=== PATIENT | female | born 1960 ===

== ENCOUNTER 2017-03-28 05:14 | Inpatient (IN) | payer OTHER ==
[~2017-03-28] VITALS: Ht 160 cm; Wt 83.0 kg
[2017-03-28] VITALS (16 sets, daily range): BP systolic 102–145; BP diastolic 61–89
[2017-03-28] MEDS ORDERED: METFORMIN HCL500 M1 ORAL (06:16)
[2017-03-28] MEDS ORDERED: OMEGA XL PO (06:16)
[2017-03-28] MEDS ORDERED: CARISOPRODOL350 MG ORAL (06:16)
[2017-03-28] MEDS ORDERED: HYDROCODON-ACE1 EA13 ORAL (06:16)
[2017-03-28] MEDS ORDERED: CRESTOR40 MG ORAL (06:16)
[2017-03-28] MEDS ORDERED: Heparin 5000 units/ml inj ONE (06:40)
[2017-03-28] MEDS ORDERED: Bupivacaine w/Epi 0.5% 30ml Vial INJ ONE (06:40)
[2017-03-28] MEDS ORDERED: Vancomycin 1gm inj IVPB ONE (06:40)
[2017-03-28] MEDS ORDERED: Ropivacaine 5mg/ml Vial 20ml INJ ONE (06:40)
[2017-03-28] MEDS ORDERED: Bupivacaine 0.5% Inj 30 ml vial INJ ONE (06:40)
[2017-03-28] MEDS ORDERED: Surgicel 4in x 8in TOPIC ONE (06:41)
[2017-03-28] MEDS ORDERED: LR 1000ml 1,000 ML IVLG SCH (06:51)
--- NOTE | 2017-03-28 06:55 | Anethesia Preoperative Eval ---
Anesthesia Pre-op PMH/ROS General Date of Evaluation: Mar 28, 2017 Time of Evaluation: 07:06 Anesthesiologist: Dawood ASA Score: ASA 3 Mallampati Score Class I : Soft palate, uvula, fauces, pillars visible Class II: Soft palate, uvula, fauces visible Class III: Soft palate, base of uvula visible Class IV: Only hard plate visible Mallampati Classification: Class II Surgeon: Christina Diagnosis: Back Pain Surgical Procedure: ALIF L5-S1, PSF Screws, Instruments Anesthesia History: PONV Family History: no anesthesia problems Allergies: Coded Allergies: No Known Allergies (Unverified , 03/27/17) Medications: see eMAR Past Medical History Cardiovascular: Reports: HTN, other - HL Endocrine: Reports: DM - FBS 113 Other: obesity - BMI 32 PSxH Narrative: Cholecystectomy, TL Anesthesia Pre-op Phys. Exam Physician Exam Last Vital Signs Date Time Temp Pulse Resp B/P Pulse Ox O2 Delivery O2 Flow Rate FiO2 03/28/17 05:58 97.3 66 18 130/89 98 Room Air Constitutional: NAD Neurologic: CN 2-12 intact Cardiovascular: RRR Respiratory: CTA Gastrointestinal: S/NT/ND Airway Exam Mallampati Score: Class II MO: full ROM: full Teeth: missing, intact Anesthesia Pre-op A/P Risk Assessment & Plan Assessment: ASA 3 Plan: GA, BIS, Glidescope Status Change Before Surgery: No Pre-Antibiotics Dru Grams Ancef IV Given Within 1 Hr of Incision: Yes Time Given: 07:21 Andrew Seay MD Mar 28, 2017 06:55
--- NOTE | 2017-03-28 06:56 | Immediate Post-Op Evaluation ---
Immediate Post-Op Evalulation Immediate Post-Op Evalulation Procedure: ALIF L5-S1, PSF Screws, Instruments Date of Evaluation: Mar 28, 2017 Time of Evaluation: 10:59 IV Fluids: 1000 LR Blood Products: 0 Estimated Blood Loss: 50 Urinary Output: 550 Blood Pressure Systolic: 134 Blood Pressure Diastolic: 68 Pulse Rate: 73 Respiratory Rate: 16 O2 Sat by Pulse Oximetry: 100 Temperature (Fahrenheit): 97.8 Pain Score (1-10): 3 Nausea: No Vomiting: No Complications 0 Patient Status: awake, reacts, patent, extubated, none Hydration Status: adequate Dru Grams Ancef IV Given Within 1 Hr of Incision: Yes Time Given: 07:21 Andrew Seay MD Mar 28, 2017 06:56
[2017-03-28] MEDS ORDERED: Hydromorphone 0.5mg/0.5ml inj IVP PRN (07:00)
[2017-03-28] MEDS ORDERED: Oxycodone/Acetaminophen 5-325 ORAL PRN (07:00)
[2017-03-28] MEDS ORDERED: Dexamethasone 20mg/5ml IVP ONE (07:00)
[2017-03-28] MEDS ORDERED: Lidocaine 1% MPF 10mg/ml 5ml ONE (07:00)
[2017-03-28] MEDS ORDERED: Midazolam 2mg/2ml Inj IVP PRN (07:00)
[2017-03-28] MEDS ORDERED: Ketorolac 30mg Inj IV PRN (07:00)
[2017-03-28] MEDS ORDERED: Lidocaine 1% Plain 30 ml INJ ONE ×2 (07:00→10:20)
[2017-03-28] MEDS ORDERED: NS Irrig 1000ml ONE (07:00)
[2017-03-28] MEDS ORDERED: Metoclopramide 10mg/2ml Inj IVP PRN (07:00)
[2017-03-28] MEDS ORDERED: Sterile Water Irrig 1000ml IRRIG ONE (07:00)
[2017-03-28] MEDS ORDERED: ceFAZolin sod 1 GM in NS 55 ML IVPB ONE (07:00)
[2017-03-28] MEDS ORDERED: Neostigmine 1mg/ml 10ml Inj ONE (07:00)
[2017-03-28] MEDS ORDERED: Glycopyrrolate 0.2mg/ml 1ml Vial ONE (07:00)
[2017-03-28] MEDS ORDERED: fentaNYL 100 mcg/2 mL IV PRN (07:00)
[2017-03-28] MEDS ORDERED: Zemuron 50mg/5ml Inj IV ONE (07:00)
[2017-03-28] MEDS ORDERED: DiphenhydrAMINE 50mg/ml Inj IVP PRN (07:00)
[2017-03-28] MEDS ORDERED: Atropine Inj 1mg/10ml Syr IV PRN (07:00)
[2017-03-28] MEDS ORDERED: Norco 7.5mg/325mg tab ORAL PRN (07:00)
[2017-03-28] MEDS ORDERED: Propofol 10mg/ml 100ml btl IV ONE (07:00)
[2017-03-28] MEDS ORDERED: Midazolam 2mg/2ml Inj ONE ×2 (07:00)
[2017-03-28] MEDS ORDERED: Meperidine 25mg/0.5ml Inj (FOR RIGORS ONLY) IV PRN (07:00)
[2017-03-28] MEDS ORDERED: Ketorolac 60mg Inj IV PRN (07:00)
[2017-03-28] MEDS ORDERED: LORazepam Inj 2mg/ml 1ml IV PRN (07:00)
[2017-03-28] MEDS ORDERED: fentaNYL 100 mcg/2 mL IV ONE (07:00)
[2017-03-28] MEDS ORDERED: fentaNYL 250mcg/5ml ONE (07:00)
[2017-03-28] MEDS ORDERED: Norco 5mg/325mg tab ORAL PRN (07:00)
--- NOTE | 2017-03-28 07:01 | Pre-Procedure Note/Attestation ---
Pre-Procedure Note/Attestation Complete Prior to Procedure Planned Procedure: not applicable Procedure Narrative: Anterior interbody reconstruction fusion internal fixation L5-S1 posterior fusion pedicle screw instrumentation L5-S1 Indications for Procedure Pre-Operative Diagnosis: Postr trauma back pain Attestation I attest that I discussed the nature of the procedure; its benefits; risks and complications; and alternatives (and the risks and benefits of such alternatives ), prior to the procedure, with the patient (or the patient's legal pharmacy services representative). I attest that, if there was a reasonable possibility of needing a blood transfusion, the patient (or the patient's legal pharmacy services representative) was given the [facility] standardized written summary, pursuant to the [place] Blood Safety Act ([place] Health and Safety Code # 1645, as amended). I attest that I re-evaluated the patient just prior to the surgery and that there has been no change in the patient's H&P, except as documented below: MIS ARANDA Mar 28, 2017 07:01
[2017-03-28] MEDS: Thrombin 5000 units TOPIC ONE ×2 (07:15→07:56)
[2017-03-28] MEDS: Bacitracin 50000 Units Vial ONE ×2 (07:15→07:56)
[2017-03-28] MEDS ORDERED: Acetaminophen (Non formulary) 1,000 MG/100 ML ML IV ONE (07:30)
--- NOTE | 2017-03-28 10:56 | Brief Operative Note ---
Immediate Post Operative Note Operative Note Pre-op Diagnosis: Postr trauma back pain Procedure: Anterior L5-S1 interbody reconstruction, correction deformity, internal fixation , BMP assist vascular Posterior Pedicla screw L5, S1 fusion SSEP Xray Post-op Diagnosis: same as pre-op Findings: consistent w/pre-op dx studies Surgeon: Christina Lizama Aircraft Refueller: Nicky BUTLER Anesthesiologist: Dawood Anesthesia: general Specimen: none Complications: none Condition: stable Estimated Blood Loss: minimal Implant(s) used?: Yes MIS ARANDA Mar 28, 2017 10:56
[2017-03-28] MEDS ORDERED: HYDROmorphone 1mg/ml Carpuject SUBQ PRN (11:00)
[2017-03-28] MEDS ORDERED: Norco 10mg/325mg tab ORAL PRN (12:15)
[2017-03-28] MEDS ORDERED: PCA HYDROmorphone 1mg/ml 30 ML IV PRN (12:15)
--- NOTE | 2017-03-28 12:30 | Operative Note - Dictated ---
DATE OF OPERATION: 03/28/2017 ADMITTING/PREOPERATIVE DIAGNOSIS: Posttraumatic discogenic back pain. POSTOPERATIVE DIAGNOSIS: Posttraumatic discogenic back pain. OPERATIVE PROCEDURES: 1. Anterior interbody reconstruction fusion with correction deformity and internal fixation L5-S1 with BMP mediated fusion. 2. Posterior pedicle screw instrumentation, L5, S1 with bilateral facet fusions L5-S1. 3. SSEP monitoring. 4. Intraoperative fluoroscopy interpreted by surgeon. 5. Local anesthetic applied by surgeon. SURGEON: Thomas Vasquez, Ph.D., M.D., vascular surgeon anterior approach. Please see separate dictation, Dr. Vasquez respiratory care assistant Dr. Echavarria. Posterior Dr. Vasquez respiratory care assistant CARRIE Lemon. ESTIMATED BLOOD LOSS: Minimal. ANESTHESIOLOGIST: Andrew Seay M.D. ANESTHESIA: General anesthetic with intubation. COMPLICATIONS: None. POSTOPERATIVE CONDITION: Good/stable. SPECIMEN: None. PROCEDURE IN DETAIL: The patient was brought to the operating room and in the supine position, general anesthesia with intubation was induced. Intravenous antibiotics, intravenous Decadron were administered 30 minutes prior to incision time. Anterior abdomen was sterilely, prepped, draped free in the usual sterile fashion. Anterior exposure of the L5-S1 interval was undertaken with Dr. Echavarria and Dr. Vasquez assist. Please see separate dictation. L5-S1 was identified in AP and lateral planes under fluoroscopic guidance under sterile conditions. Midline determined. Annulotomy performed followed with diskectomy to but not through the posterior longitudinal ligament. Denuding of the endplates, inferior L5, superior S1 to subchondral bone. Interpositional grafting with appropriate lordotic cage with fluoroscopic guidance utilized for determination of the correct size and position. The graft containing bone morphogenic protein. Internal fixation. Positioned excellent. The patient is stable. SSEP monitoring. Remaining normal at all times. Graft was incorporated in fibrin glue. The patient was carefully turned to the prone position after the anterior abdomen was sterilely closed and bandaged. Change to different operating table. All new instruments were utilized. The patient was back was sterilely prepped and draped free in the usual sterile fashion. Fluoroscopic guidance under sterile conditions, utilized to determine levels for incision placement with markers. Marker was removed. Longitudinal midline incision over the appropriate intervals were sharply placed at the dermis and epidermis. Electrocautery dissection was carried through the subcutaneous tissue to the level of lumbodorsal fascia was incised right and left of midline over the respective intervals. Pedicle screw instrumentation was undertaken with fluoroscopic guidance of the L5 with 5.5 mm diameter screws and S1 bilaterally was 6.5 mm diameter screws. Posterior cortex was breach with Midas Yogi bur dissection followed with pedicle screw finding, tapping, physical determination with ball-tipped probe of cortical wall integrity, screw insertion and screw stimulation to 5 milliamps. Normal at L5 and S1. The L5-S1 facets were obliterated and fused bilaterally. Interconnecting alexia clamped into position bilaterally. Wound irrigated with antibiotic-containing saline. FloSeal applied followed with 2 grams of vancomycin powder. Sequential reapproximation with Vicryl suture material of the lumbodorsal fascia, subcutaneous tissue. Dermis and epidermis reapproximated with staple sutures. Local anesthetic 1% lidocaine without epinephrine applied bilateral lateral aspects of the incision. Bandage applied, maintained in place with tape. The patient carefully turned from a prone to supine position on the transport bed where she was awakened, extubated in the operating room, and transported to postoperative recovery in good stable condition. Thomas Vasquez M.D. DR: HALIE JOB#: [id number] CC:
[2017-03-28] MEDS ORDERED: LORazepam 0.5mg tab ORAL PRN (13:30)
[2017-03-28] MEDS ORDERED: Naloxone 0.4mg/ml Inj IVP PRN (14:30)
[2017-03-28] MEDS ORDERED: Rate Change PCA 1 Each MISC PRN (15:00)
[2017-03-28] MEDS ORDERED: D5 1/2NS 1,000 ML IV SCH (15:00)
[2017-03-28] MEDS: ceFAZolin sod 1 GM in D5W 55 ML IV SCH ×2 (15:04→23:39)
[2017-03-28] MEDS: PCA HYDROmorphone 1mg/ml 30 ML IV PRN (15:57)
--- NOTE | 2017-03-28 16:36 | Diagnostic Imaging Report ---
Indication: PAIN intraoperative Technique: Intraoperative images Comparison: None Findings: Intraoperative images demonstrate localizing needle what is presumably L5-S1 subsequent images demonstrate placement of a disc spacer at L5-S1, subsequent placement of posterior fusion hardware. Impression: Intraoperative imaging, as described
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
--- NOTE | 2017-03-28 18:00 | Operative Note - Dictated ---
DATE OF OPERATION: 03/28/2017 VASCULAR SURGEON: Jose Echavarria M.D. SPINE SURGEON: Thomas Vasquez M.D. PREOPERATIVE DIAGNOSIS: Degenerative disc disease. POSTOPERATIVE DIAGNOSIS: Degenerative disc disease. PROCEDURE: Anterior retroperitoneal exposure of L5-S1 vertebral interspace. INDICATIONS: The patient is a very pleasant woman, who was seen in my office prior to surgery. She has been scheduled for anterior fusion L5-S1. She has had two prior BONUS CLERK surgeries as well as appendectomy. These appeared to be done through a vertical midline incision and she has a large vertical midline incision extending from her umbilicus distally. She has no masses palpable. On examination, she has normal femoral pedal pulses. She is made aware of the risks of vascular surgery both by discussing with her directly in Faroese as well as the use of a general partner at the time of our initial evaluation. She has no evidence of vascular injury. Possible need for blood transfusion and deep venous thrombosis. DESCRIPTION OF FINDINGS: A previous low vertical midline incision was used. A left retroperitoneal approach was used. There is no peritoneal or ureteral violation. There is no vascular injury. Exposure of L5-S1 was obtained below the iliac bifurcation with retraction of left common iliac vessels superiorly and laterally. On completion, the peritoneum and ureter intact. Iliac vessels are intact. No palpable femoral pedal pulses. Pulse oximetry and neurologic monitoring normal throughout the case. BLOOD LOSS: Less than 50 mL. DESCRIPTION OF PROCEDURE: The patient was taken to the operating room, general anesthesia was used. IV antibiotics were given. The patient's abdomen was prepped and draped. Appropriate time-out procedures were taken. A low vertical midline incision was used. The anterior fascia incised longitudinally in the midline. A plane was identified posterior to the left rectus abdominis and developed posterolaterally towards the patient's left. Retroperitoneal space was entered below the arcuate line. The peritoneum and ureter mobilized towards the patient's right exposing the left common iliac vessels. Dissection was carried out undersurface of the left common iliac artery and vein. Overlying lymphatics were ligated with vascular clips and divided. This allowed us to retract the left iliac vessels superiorly and laterally exposing the anterior surface of L5-S1. The Omni retractor was set in place. Fluoroscopy used to confirm the appropriate level. Then instrumentation fusion performed at L5-S1 is dictated separately. On completion, the peritoneum ureter intact. The iliac vessels were intact. Anterior fascia was then closed using #1 PDS in a running fashion. Skin and subcutaneous tissue were closed using 3-0 Vicryl and 4-0 Monocryl in running subcuticular closure technique. ESTIMATED BLOOD LOSS: Less than 50 mL. COMPLICATIONS: None. Jose Stacey Echavarria DR: CHANG JOB#: [id number] CC:
[2017-03-28] MEDS: PCA shift volume MISC SCH (19:00)
--- NOTE | 2017-03-28 19:58 | Cardiology Progress Note ---
Assessment/Plan Assessment/Plan [id number] ppx d/c dextronm iss pain managment npo until has flautus or bm ambualte when ok with dr saenz Objective Last 24 Hour Vital Signs Date Time Temp Pulse Resp B/P Pulse Ox O2 Delivery O2 Flow Rate FiO2 03/28/17 16:27 97.2 03/28/17 16:21 18 03/28/17 16:00 18 03/28/17 16:00 97.2 76 17 102/62 99 Room Air 03/28/17 14:15 97.0 72 18 114/74 100 Room Air 03/28/17 13:25 97.4 70 18 131/76 98 Room Air 03/28/17 12:55 97.4 72 18 128/79 99 Room Air 03/28/17 12:30 97.2 71 18 136/85 100 Nasal Cannula 2.0 03/28/17 12:15 97.2 71 20 142/78 99 Nasal Cannula 2.0 03/28/17 12:00 97.2 73 20 145/82 100 Nasal Cannula 2.0 03/28/17 11:56 97.2 70 20 144/77 100 Nasal Cannula 2.0 03/28/17 11:40 70 20 142/84 100 Nasal Cannula 2.0 03/28/17 11:25 69 20 134/77 100 Simple Mask 8.0 03/28/17 11:10 81 20 135/88 100 Simple Mask 8.0 03/28/17 10:58 69 20 135/77 100 Simple Mask 8.0 03/28/17 10:53 73 20 126/73 100 Simple Mask 8.0 03/28/17 10:51 73 16 100 03/28/17 10:48 97.8 73 20 133/75 100 Simple Mask 8.0 03/28/17 05:58 97.3 66 18 130/89 98 Room Air Intake and Output 03/27/17 03/28/17 19:00 07:00 # Voids 1 ELENITA HANDLEY Mar 28, 2017 19:58
[2017-03-28] MEDS ORDERED: NovoLOG Insulin Flexpen SUBQ SCH (21:00)
[2017-03-28] MEDS: HYDROmorphone 1mg/ml Carpuject SUBQ PRN (21:56)
[2017-03-28] MEDS ORDERED: D5 1/2NS 1000ml IV ONE (22:45)
[2017-03-28] MEDS ORDERED: Tubing IV Secondary IV ONE (22:45)
[2017-03-29] VITALS: BP 108/62
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
[2017-03-29] MEDS: NovoLOG Insulin Flexpen SUBQ SCH ×5 (03:34→20:18)
[2017-03-29 04:00] VITALS: BP 111/65
[2017-03-29] MEDS: ceFAZolin sod 1 GM in D5W 55 ML IV SCH (06:07)
[2017-03-29] MEDS: PCA shift volume MISC SCH ×2 (07:07→19:09)
--- NOTE | 2017-03-29 07:45 | Progress Note ---
DATE: 03/29/2017 ACUTE PAIN MANAGEMENT PHYSICIAN PROGRESS NOTE MEDICATIONS: Medication administration record reviewed. Medications include IV fluids, Phenergan, Protonix, Zofran, Narcan, Ativan, SUPERVISOR HARVESTING Dilaudid, diabetic medications, Rumely, Benadryl, Soma, and Mylanta. LABORATORY STUDIES: No interval laboratory studies. OBJECTIVE: VITAL SIGNS: Pain level 6/10 on the visual pain scale, oxygen saturation 97% on nasal cannula oxygen, afebrile, pulse 88, and respirations 20. I spent over 60 minutes in consultation today. I saw the patient at bedside. Discussed the case with the surgeon, Dr. Vasquez. The patient has been using her SUPERVISOR HARVESTING unit overnight for a primary analgesia. She also received a breakthrough dose of subcutaneous Dilaudid, which was well tolerated without over sedation. There was concern that the patient may have panic attacks. I discussed with the nurse and ordered a p.r.n. dose of Ativan 0.5 mg q.6 hours p.r.n. So far, this dose has not been needed to be dispensed. I would continue the SUPERVISOR HARVESTING unit at this time because she had become more ambulatory with physical therapy. Physical therapy will start ambulation training later this Saturday morning. There is no bowel function after anterior lumbar interbody fusion procedure. We will continue on NPO. We will see her diet NPO except for the medications and ice chips until she starts passing flatus. The patient will continue on IV fluids for intravascular rehydration while she remains relatively NPO. When she is able to tolerate oral intake, I have been ordered Rumely and Soma to complement the subcutaneous Dilaudid for breakthrough analgesia. The patient does have a female director quality assurance at the bedside providing good social support. I have asked the nurse to provide incentive spirometer at the bedside to encourage good pulmonary toilet. Will use sequential compression pneumatic devices for DVT prophylaxis while the patient is in bed. Elian Delgado M.D. DR: KENIA JOB#: [id number] CC:
[2017-03-29 08:00] VITALS: BP 111/65
[2017-03-29 12:00] VITALS: BP 99/60
[2017-03-29 16:00] VITALS: BP 112/55
[2017-03-29] MEDS: PCA HYDROmorphone 1mg/ml 30 ML IV PRN (16:21)
--- NOTE | 2017-03-29 18:10 | Cardiology Progress Note ---
Assessment/Plan Assessment/Plan 1. Diabetes mellitus. 2. Hyperlipidemia. 3. Lumbar discogenic pain, status post surgery today. bs are fine less than 135 lwo bp and some orthosttic sx will bolus with ivf adn increase rate seem less tender thatn yest looks good hopefully ambualte in am iss pain managment npo until has flautus or bm ambualte when ok with dr saenz whe start po need to resume on metformin Subjective Cardiovascular: Reports: lightheadedness Respiratory: Denies: shortness of breath Gastrointestinal/Abdominal: Reports: abdominal pain, constipated, nausea Genitourinary: Denies: burning Objective Last 24 Hour Vital Signs Date Time Temp Pulse Resp B/P Pulse Ox O2 Delivery O2 Flow Rate FiO2 03/29/17 16:51 98.1 03/29/17 16:00 17 03/29/17 12:00 98.1 86 18 99/60 95 Room Air 03/29/17 12:00 18 03/29/17 08:03 18 03/29/17 08:00 97.7 88 20 111/65 95 03/29/17 04:00 97.7 81 20 111/65 99 Nasal Cannula 2.0 03/29/17 00:00 99.0 88 20 108/62 97 Nasal Cannula 2.0 03/28/17 20:00 97.7 87 18 106/61 99 Nasal Cannula 2.0 General Appearance: no apparent distress, alert Cardiovascular: normal rate, regular rhythm Respiratory/Chest: lungs clear, normal breath sounds Abdomen: soft, hypoactive bowel sounds, tender Extremities: non-tender, no swelling, other - penumaotic compression stocking Intake and Output 03/28/17 03/29/17 19:00 07:00 Intake Total 1375 ml 1500 ml Output Total 600 ml 1200 ml Balance 775 ml 300 ml Intake IV Total 1375 ml 1500 ml Output Urine Total 550 ml 1200 ml Estimated Blood Loss 50 ml ELENITA HANDLEY Mar 29, 2017 18:10
[2017-03-29 20:00] VITALS: BP 125/64
[2017-03-30] VITALS (8 sets, daily range): BP systolic 118–131; BP diastolic 62–75
[2017-03-30] MEDS: HYDROmorphone 1mg/ml Carpuject SUBQ PRN (07:43)
[2017-03-30] MEDS: NovoLOG Insulin Flexpen SUBQ SCH ×4 (08:43→21:01)
--- NOTE | 2017-03-30 09:00 | Progress Note ---
DATE: 03/30/2017 ACUTE PAIN MANAGEMENT PHYSICIAN PROGRESS NOTE MEDICATIONS: Medication administration record reviewed. Medications include Dilaudid CRTT, Mylanta, Soma, Benadryl, [place], IV fluids, subcutaneous Dilaudid, Ativan, insulin and diabetic medications, Narcan, Zofran, Protonix, and Phenergan. LABORATORY STUDIES: No interval laboratory studies. OBJECTIVE: VITAL SIGNS: Pain level is 7/10 on the visual analog pain scale. Pulse 104, afebrile, respirations 17, blood pressure 126/62, and oxygen saturation 90% on room air. I spent over 60 minutes in consultation today. I saw the patient at bedside with Malawian-speaking manager retail store JEAN Luciano. Also discussed the case with overnight nurse JEAN Dawson. The patient has been using her CRTT for good analgesia. She has difficulty ambulating out of bed yesterday due to dizziness. The patient's IV fluid rate was increased to 150 mL an hour, hopefully the patient will have better success ambulating today. She still has not yet passed positive flatus after anterior lumbar interbody fusion procedure. We will continue her NPO except for medications and ice chips until there is better signs of bowel function and moravian, as evidenced with positive flatus. The patient is accompanied at the bedside by a male network lead. He has been very supportive and encouraged the patient to be aggressive using her incentive spirometer. I will ask the physical therapist to leave a front-wheeled walker in the room to encourage ambulation. I have left a prescription for [place] and Soma for outpatient usage. At this time, I believe it is reasonable to discontinue her CRTT in order to help transition on to oral pain medications. I will continue p.r.n. doses of Ativan and subcutaneous Dilaudid as well for panic attacks and breakthrough severe pain as well, respectively. The patient denies any shortness of breath or chest pain. The patient denies any nausea symptoms. At this point, we will continue to treat the patient supportively and await positive flatus while she increases her ambulation and incentive spirometer usage. Elian Delgado M.D. DR: STACY JOB#: [id number] CC:
[2017-03-30 15:11] LABS: BASOPHILS % (AUTO) 0.7 % (0.0-2.0); EOSINOPHILS % (AUTO) 1.4 % (0.0-3.0); LYMPHOCYTES % (AUTO) 10.2 % (20.0-45.0); MEAN CORPUSCULAR VOLUME 94 FL (80-99); MEAN PLATELET VOLUME 6.7 FL (6.5-10.1); MONOCYTES % (AUTO) 9.9 % (1.0-10.0); NEUTROPHILS % (AUTO) 77.9 % (45.0-75.0); PLATELET COUNT 175 K/UL (150-450); RED BLOOD COUNT 3.11 M/UL (4.20-5.40); RED CELL DISTRIBUTION WIDTH 11.5 % (11.6-14.8); WHITE BLOOD COUNT 11.2 K/UL (4.8-10.8)
[2017-03-30 15:35] LABS: ALANINE AMINOTRANSFERASE 19 U/L (3-33); ALBUMIN/GLOBULIN RATIO 1.3 (1.0-2.7); ANION GAP 11 (5-15); ASPARTATE AMINO TRANSFERASE 29 U/L (5-40); CALCIUM 8.5 mg/dL (8.6-10.2); CARBON DIOXIDE 24 mEQ/L (20-30); CHLORIDE 101 mEQ/L (98-107); CREATININE 0.6 mg/dL (0.5-0.9); GLOMERULAR FILTRATION RATE > 60 mL/min (>60); HEMOLYSIS 1; POTASSIUM 4.4 mEQ/L (3.4-4.9); SODIUM 136 mEQ/L (135-145); TOTAL PROTEIN 6.2 g/dL (6.6-8.7)
--- NOTE | 2017-03-30 18:18 | Cardiology Progress Note ---
Assessment/Plan Assessment/Plan noted labs will check orthostatics again Subjective Subjective the patient is resting in bed, alert, no pain Objective Last 24 Hour Vital Signs Date Time Temp Pulse Resp B/P Pulse Ox O2 Delivery O2 Flow Rate FiO2 03/30/17 16:00 100.4 106 18 131/74 95 Room Air 03/30/17 11:51 98.2 94 18 130/69 93 Room Air 03/30/17 08:49 99.1 98 20 128/64 93 Room Air 03/30/17 08:13 99.0 03/30/17 04:00 16 03/30/17 04:00 99.0 104 17 126/62 98 Room Air 03/30/17 00:00 99.7 100 17 125/65 95 Room Air 03/30/17 00:00 15 03/29/17 20:00 99.7 97 19 125/64 95 Room Air 03/29/17 20:00 16 General Appearance: no apparent distress EENT: PERRL/EOMI Neck: normal alignment Rhythm: NSR Cardiovascular: normal rate Respiratory/Chest: lungs clear Abdomen: soft, other - tender in epigastric area where incision is Extremities: normal range of motion Intake and Output 03/29/17 03/30/17 19:00 07:00 Intake Total 1125 ml 1650 ml Output Total 1300 ml 1300 ml Balance -175 ml 350 ml Intake IV Total 1125 ml 1650 ml Output Urine Total 1300 ml 1300 ml Laboratory Tests Test 03/30/17 14:50 White Blood Count 11.2 K/UL (4.8-10.8) H Red Blood Count 3.11 M/UL (4.20-5.40) L Hemoglobin 10.3 G/DL (12.0-16.0) L Hematocrit 29.3 % (37.0-47.0) L Mean Corpuscular Volume 94 FL (80-99) Mean Corpuscular Hemoglobin 33.0 PG (27.0-31.0) H Mean Corpuscular Hemoglobin Concent 35.0 G/DL (32.0-36.0) Red Cell Distribution Width 11.5 % (11.6-14.8) L Platelet Count 175 K/UL (150-450) Mean Platelet Volume 6.7 FL (6.5-10.1) Neutrophils (%) (Auto) 77.9 % (45.0-75.0) H Lymphocytes (%) (Auto) 10.2 % (20.0-45.0) L Monocytes (%) (Auto) 9.9 % (1.0-10.0) Eosinophils (%) (Auto) 1.4 % (0.0-3.0) Basophils (%) (Auto) 0.7 % (0.0-2.0) Sodium Level 136 mEQ/L (135-145) Potassium Level 4.4 mEQ/L (3.4-4.9) Chloride Level 101 mEQ/L (98-107) Carbon Dioxide Level 24 mEQ/L (20-30) Anion Gap 11 (5-15) Blood Urea Nitrogen 7 mg/dL (7-23) Creatinine 0.6 mg/dL (0.5-0.9) Estimat Glomerular Filtration Rate > 60 mL/min (>60) Glucose Level 102 mg/dL (74-106) Calcium Level 8.5 mg/dL (8.6-10.2) L Total Bilirubin 0.9 mg/dL (0.0-1.2) Aspartate Amino Transf (AST/SGOT) 29 U/L (5-40) Alanine Aminotransferase (ALT/SGPT) 19 U/L (3-33) Alkaline Phosphatase 47 U/L (35-104) Total Protein 6.2 g/dL (6.6-8.7) L Albumin 3.6 g/dL (3.5-5.2) Globulin 2.6 g/dL Albumin/Globulin Ratio 1.3 (1.0-2.7) Microbiology Date/Time Source Procedure Growth Status 03/28/17 05:50 Nasal Nares MRSA Culture - Final NO METHICILLIN RESISTANT STAPH AUREUS... Complete MARIE DIEZ Mar 30, 2017 18:18
[2017-03-31] VITALS: BP 135/76
[2017-03-31 04:00] VITALS: BP 130/75
[2017-03-31] MEDS: NovoLOG Insulin Flexpen SUBQ SCH ×2 (06:24→12:02)
[2017-03-31 07:36] VITALS: BP 130/70
[2017-03-31 08:54] VITALS: BP 135/76
[2017-03-31 11:55] VITALS: BP 130/77
[2017-03-31] MEDS ORDERED: 1/2 NS 1000ml IV ONE (15:01)
[2017-03-31] MEDS ORDERED: NORCO 10-325 T1 EACH ORAL (15:26)
[2017-03-31] MEDS ORDERED: SOMA350 MG PO (15:34)
--- NOTE | 2017-03-31 16:47 | Progress Note ---
DATE: 03/31/2017 ACUTE PAIN MANAGEMENT PHYSICIAN PROGRESS NOTE MEDICATIONS: Medication administration record reviewed. Medications include Phenergan, Protonix, Zofran, Narcan, Ativan, diabetic medications, Dilaudid, Ovalo, Benadryl, Soma, and Mylanta. LABORATORY DATA: Laboratory studies from yesterday 03/30/2017 shows white count of 11, hematocrit 29, and platelets 175,000. Sodium 136, potassium 4.4, chloride 101, bicarb 24, BUN 7, creatinine 0.6, glucose 102, and calcium 8.5. Total bilirubin 0.9. AST 29, ALT 19, and alkaline phosphatase 47. Total protein 6.2. Albumin 3.6. OBJECTIVE: VITAL SIGNS: Afebrile, pulse 90, respirations 20, blood pressure 135/76, and oxygen saturation 93% on room air. I spent over 60 minutes in consultation today. I saw the patient at the bedside with her after discussion with the nurse RNNitza and the surgeon Dr. Thomas Vasquez. The patient had a very large bowel movement this morning after advancing her diet yesterday. She started passing flatus yesterday evening and has advanced her diet well, without any nausea problems. The patient's pain has been adequately controlled even off of the MANAGER QUANTITATIVE, which I stopped yesterday morning. She has been using breakthrough doses of PRN Ovalo, Soma, and low-dose Dilaudid without any adverse side effects. I left the prescription for Ovalo and Soma with the patient for outpatient usage. I did continue to encourage incentive spirometer usage. The nurse will review showering instructions after she speaks with the surgeon regarding discharge instructions. The patient did ask for a front-wheeled walker and a 3-in-1 bedside commode, which the hospital has provided. The patient will have excellent social support at home with her and other extended family. If the surgeon agrees, I see no contraindications for a discharge to her home later today. Elian Delgado M.D. DR: STACY JOB#: [id number] CC:
[2017-04-02 08:26] VITALS: BP 125/72
--- NOTE | 2017-04-02 08:26 | 48 Hour Post Anesthesia Eval ---
Post Anesthesia Evaluation Procedure: ALIF L5-S1, PSF Screws, Instruments Date of Evaluation: Mar 29, 2017 Time of Evaluation: 11:15 Blood Pressure Systolic: 125 0: 72 Pulse Rate: 68 Respiratory Rate: 20 Temperature (Fahrenheit): 97.6 O2 Sat by Pulse Oximetry: 98 Airway: patent Nausea: No Vomiting: No Pain Intensity: 2 Hydration Status: adequate Cardiopulmonary Status: stable Mental Status/LOC: patient returned to baseline Follow-up Care/Observations: n/a Post-Anesthesia Complications: none Follow-up care needed: ready to discharge IGOR GRIFFIN M.D. Apr 02, 2017 08:26
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
== END 2017-03-31 16:26 | disposition home or self-care (01) | DRG 460 ==
LOC: SDSOVERFLO 05:14 → 3E 12:50
PROC: 0SG30A0 Fusion of Lumbosacral Joint with Interbody Fusion Device, Anterior Approach, Anterior Column, Open Approach (ICD-10-PCS; principal; 2017-03-28 07:00)
DX: M53.2X7 Spinal instabilities, lumbosacral region (principal); E11.9 Type 2 diabetes mellitus without complications; V89.2XXS Person injured in unspecified motor-vehicle accident, traffic, sequela; E66.9 Obesity, unspecified; E78.5 Hyperlipidemia, unspecified; G89.18 Other acute postprocedural pain
CPT/HCPCS: 36415; 72020; 76001; 80053; 82962; 85025; 86850; 86900; 86901; 87081; J1815; J2250; J2405; J2710

== ENCOUNTER 2017-11-06 05:47 | Inpatient (IN) | payer OTHER ==
[~2017-11-06] VITALS: Ht 160 cm; Wt 79.4 kg
[2017-11-06] VITALS (11 sets, daily range): BP systolic 126–145; BP diastolic 72–87
[~2017-11-06 05:47] MED LIST: CARISOPRODOL350 MG ORAL; CRESTOR40 MG ORAL; HYDROCODON-ACE1 EA13 ORAL; HYDROcodone/Acetamin 10/325 tab ORAL PRN; HYDROmorphone 1mg/ml Carpuject SUBQ PRN; METFORMIN HCL500 M1 ORAL; NORCO 10-325 T1 EACH ORAL; OMEGA XL PO; SOMA350 MG PO
[2017-11-06] MEDS ORDERED: LR 1000ml 1,000 ML IVLG SCH (06:08)
[2017-11-06] MEDS ORDERED: Atropine Inj 1mg/10ml Syr IV PRN (06:15)
[2017-11-06] MEDS ORDERED: oxyCODONE HCL/Acetaminophen 5/325mg ORAL PRN (06:15)
[2017-11-06] MEDS ORDERED: DiphenhydrAMINE 50mg/ml Inj IVP PRN (06:15)
[2017-11-06] MEDS ORDERED: Ketorolac 30mg Inj IV PRN ×2 (06:15)
[2017-11-06] MEDS ORDERED: Norco 5mg/325mg tab ORAL PRN (06:15)
[2017-11-06] MEDS ORDERED: LORazepam Inj 2mg/ml 1ml IV PRN (06:15)
[2017-11-06] MEDS ORDERED: Midazolam 2mg/2ml Inj IVP PRN (06:15)
[2017-11-06] MEDS ORDERED: fentaNYL 100 mcg/2 mL IV PRN (06:15)
[2017-11-06] MEDS ORDERED: HYDROcodone/Acetamin 7.5/325 tab ORAL PRN (06:15)
[2017-11-06] MEDS ORDERED: Hydromorphone 0.5mg/0.5ml inj IVP PRN (06:15)
[2017-11-06] MEDS ORDERED: Labetalol 5mg/ml 20ml vial IV PRN (06:15)
--- NOTE | 2017-11-06 06:23 | Anethesia Preoperative Eval ---
Anesthesia Pre-op PMH/ROS General Date of Evaluation: Nov 06, 2017 Anesthesiologist: Dawood ASA Score: ASA 3 Mallampati Score Class I : Soft palate, uvula, fauces, pillars visible Class II: Soft palate, uvula, fauces visible Class III: Soft palate, base of uvula visible Class IV: Only hard plate visible Mallampati Classification: Class II Surgeon: Christina Diagnosis: Back Pain Surgical Procedure: Remove Hardware L5-S1 Anesthesia History: none Family History: no anesthesia problems Allergies: Coded Allergies: No Known Allergies (Unverified , 11/05/17) Medications: see eMAR Past Medical History Cardiovascular: Reports: arrhythmia - HL Endocrine: Reports: DM Hematology/Immune: Reports: anemia Other: obesity - BMI 33 PSxH Narrative: Spine Sx Anesthesia Pre-op Phys. Exam Physician Exam Vital Signs Date Time Temp Pulse Resp B/P (MAP) Pulse Ox O2 Delivery O2 Flow Rate FiO2 11/06/17 06:49 97.7 78 18 136/84 98 Room Air 97.7 Constitutional: NAD Neurologic: CN 2-12 intact Cardiovascular: RRR Respiratory: CTA Gastrointestinal: S/NT/ND Airway Exam Mallampati Score: Class II MO: limited ROM: limited Teeth: missing, intact Anesthesia Pre-op A/P Risk Assessment & Plan Assessment: ASA 3 Plan: GA, BIS, GlideScope Go Status Change Before Surgery: No Pre-Antibiotics Dru Grams Ancef IV Given Within 1 Hr of Incision: Yes Andrew Seay MD Nov 06, 2017 06:23
[2017-11-06] MEDS ORDERED: Thrombin 5000 units TOPIC ONE (06:46)
[2017-11-06] MEDS ORDERED: Lidocaine 1% Plain 30 ml INJ ONE ×2 (06:46→07:00)
[2017-11-06] MEDS ORDERED: Lidocaine 1% 10mg/ml/EPI 0.01mg/ml 50ml INJ ONE (06:46)
[2017-11-06] MEDS ORDERED: Vancomycin 1gm inj IVPB ONE (06:47)
[2017-11-06] MEDS ORDERED: Bacitracin 50000 Units Vial ONE (06:47)
[2017-11-06] MEDS ORDERED: Surgicel 4in x 8in TOPIC ONE (06:47)
[2017-11-06] MEDS ORDERED: Neostigmine 1mg/ml 10ml Inj ONE (07:00)
[2017-11-06] MEDS ORDERED: Lidocaine 1% MPF 10mg/ml 5ml ONE (07:00)
[2017-11-06] MEDS ORDERED: fentaNYL 100 mcg/2 mL IV ONE (07:00)
[2017-11-06] MEDS ORDERED: NS Irrig 1000ml ONE (07:00)
[2017-11-06] MEDS ORDERED: Midazolam 2mg/2ml Inj ONE (07:00)
[2017-11-06] MEDS ORDERED: Propofol 1,000mg/ 100ml btl IV ONE (07:00)
[2017-11-06] MEDS ORDERED: Zemuron 50mg/5ml Inj IV ONE (07:00)
[2017-11-06] MEDS ORDERED: LR 1000ml ONE (07:00)
[2017-11-06] MEDS ORDERED: ceFAZolin sod 1 GM in NS 55 ML IVPB ONE (07:00)
[2017-11-06] MEDS ORDERED: Sterile Water Irrig 1000ml IRRIG ONE (07:00)
[2017-11-06] MEDS ORDERED: Glycopyrrolate 0.2mg/ml 1ml Vial ONE (07:00)
[2017-11-06] MEDS ORDERED: Dexamethasone 20mg/5ml IVP ONE (07:00)
[2017-11-06] MEDS ORDERED: Acetaminophen (Non formulary) 100 ML IV ONE (07:00)
--- NOTE | 2017-11-06 07:11 | Pre-Procedure Note/Attestation ---
Pre-Procedure Note/Attestation Complete Prior to Procedure Planned Procedure: not applicable Procedure Narrative: Pedicle Screw Instrumentation removal exploration fusion mass Indications for Procedure Pre-Operative Diagnosis: Pedicle Screw instrumentation irritation paraspinal muscles Attestation I attest that I discussed the nature of the procedure; its benefits; risks and complications; and alternatives (and the risks and benefits of such alternatives ), prior to the procedure, with the patient (or the patient's legal territory representative). I attest that, if there was a reasonable possibility of needing a blood transfusion, the patient (or the patient's legal territory representative) was given the [facility] standardized written summary, pursuant to the [place] Blood Safety Act ([place] Health and Safety Code # 1645, as amended). I attest that I re-evaluated the patient just prior to the surgery and that there has been no change in the patient's H&P, except as documented below: MIS ARANDA Nov 06, 2017 07:11
--- NOTE | 2017-11-06 07:16 | Immediate Post-Op Evaluation ---
Immediate Post-Op Evalulation Immediate Post-Op Evalulation Procedure: Remove Hardware L 5-S1 Date of Evaluation: Nov 06, 2017 Time of Evaluation: 09:24 IV Fluids: 1000 LR Blood Products: 0 Estimated Blood Loss: 25 Urinary Output: 0 Blood Pressure Systolic: 140 Blood Pressure Diastolic: 83 Pulse Rate: 71 Respiratory Rate: 16 O2 Sat by Pulse Oximetry: 100 Temperature (Fahrenheit): 97 Pain Score (1-10): 3 Nausea: No Vomiting: No Complications 0 Patient Status: awake, reacts, patent, extubated, none Hydration Status: adequate Dru Grams Ancef IV Given Within 1 Hr of Incision: Yes Time Given: 07:31 Andrew Seay MD Nov 06, 2017 07:16
--- NOTE | 2017-11-06 09:02 | Brief Operative Note ---
Immediate Post Operative Note Operative Note Pre-op Diagnosis: Pedicle Screw instrumentation irritation paraspinal muscles Procedure: Exploration Fusion Mass Xray Local Magnification L5, S1 instrumentation removal Post-op Diagnosis: same as pre-op Findings: consistent w/pre-op dx studies Surgeon: Christina DOHERTY Anesthesiologist: Dawood Anesthesia: general Specimen: yes Complications: none Condition: stable Fluids: anesthesia Estimated Blood Loss: none Drains: none Implant(s) used?: No MIS ARANDA Nov 06, 2017 09:01
[2017-11-06] MEDS ORDERED: Naloxone 0.4mg/ml Inj IVP PRN (09:15)
--- NOTE | 2017-11-06 09:23 | 48 Hour Post Anesthesia Eval ---
Post Anesthesia Evaluation Procedure: Remove Hardware L 5-S1 Date of Evaluation: Nov 06, 2017 Time of Evaluation: 11:43 Blood Pressure Systolic: 139 0: 78 Pulse Rate: 76 Respiratory Rate: 18 Temperature (Fahrenheit): 98.2 O2 Sat by Pulse Oximetry: 99 Airway: patent Nausea: No Vomiting: No Pain Intensity: 3 Hydration Status: adequate Cardiopulmonary Status: Stable Mental Status/LOC: patient returned to baseline Follow-up Care/Observations: 0 Post-Anesthesia Complications: 0 Follow-up care needed: ready to discharge Andrew Seay MD Nov 06, 2017 09:23
--- NOTE | 2017-11-06 11:45 | Diagnostic Imaging Report ---
Indication: Back pain, intraoperative imaging Technique: Intraoperative images Comparison: 03/28/2017 Findings: Intraoperative images document removal of previously demonstrated posterior spinal fusion hardware at L5-S1. Impression: Intraoperative imaging, as described
[2017-11-06] MEDS ORDERED: D5 1/2NS 1,000 ML IV SCH (12:30)
[2017-11-06] MEDS ORDERED: ceFAZolin sod 1 GM in NS 55 ML IV SCH (15:00)
--- NOTE | 2017-11-06 17:47 | Operative Note - Dictated ---
DATE OF OPERATION: 11/06/2017 SURGEON: Thomas Vasquez, Ph.D., M.D. MANAGER PAYER: None. ANESTHESIA: Dr. Seay, general with intubation. ESTIMATED BLOOD LOSS: None. COMPLICATIONS: None. POSTOPERATIVE CONDITION: Good/stable. OPERATIVE PROCEDURE: 1. Exploration of fusion mass, L5-S1. 2. Operation to scar tissue. 3. Removal of pedicle screw instrumentation, L5, S1. 4. High-powered microscopic dissection. 5. Local anesthetic applied by surgeon. 6. Intraoperative x-rays interpreted by surgeon. 7. SSEP monitoring. DESCRIPTION OF PROCEDURE: The patient was brought to the operating room and in the supine position, general anesthesia with intubation was induced. IV antibiotics were administered 30 minutes prior to incision time. The patient was carefully turned and positioned in the prone position. Sterile instruments were laid on the posterior aspect of the back demonstrating the correct levels and lateralization for incision placement. Levels marked. Sterile instruments removed. Back sterilely prepped and draped free in usual sterile fashion. A midline incision utilizing part of the prior midline scar was sharply placed through the scar, dermis, and epidermis. Electrocautery dissection through subcutaneous tissue to the level of lumbodorsal fascia that was incised bilaterally in a Wilste fashion. Dissection was carried bilaterally through the paraspinal muscles to the level of instrumentation. Interconnecting rods removed bilaterally. Instrumentation node is tight. Stressing revealed the fusion mass was intact. Screws removed in a piecemeal fashion. Wound irrigated with antibiotic-containing saline. SSEP monitoring stable. Sterile wax placed superficially within the screw holes, followed with Hemo-Seal, followed with vancomycin powder deep to the lumbodorsal fascia. Lumbodorsal fascia was reapproximated with Vicryl suture material. Subcutaneous tissue was reapproximated in multiple layers with Vicryl suture material. Dermis and epidermis were further reapproximated followed with application of transverse surgical strips. Local anesthetic 1% lidocaine with epinephrine was introduced into the dermal/subcutaneous interval bilateral lateral aspects of the wound as local anesthetic. Sterile bandage applied and maintained in place with tape. The patient carefully turned from the prone to the supine position on the transport bed where she was awakened and extubated in the operating room, and transported to postoperative recovery in good stable condition. Thomas Vasquez M.D. DR: LEFTY JOB#: [id number] CC:
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
--- NOTE | 2017-11-07 18:10 | Discharge Summary ---
Discharge Summary Hospital Course Date of Admission Nov 06, 2017 at 11:45 Date of Discharge Nov 06, 2017 at 16:20 Admitting Diagnosis HPI Marium Santos is a 57 year old female who was admitted on Nov 06, 2017 at 11:45 for Painful Implants Hospital Course [id number] Discharge Discharge Disposition Patient was discharged to Home (01) Discharge Diagnoses: Judy French NP Nov 07, 2017 18:10
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
== END 2017-11-06 16:20 | disposition home or self-care (01) | DRG 517 ==
LOC: SUR 05:47 → 3E 11:45
PROC: 0SP004Z Removal of Internal Fixation Device from Lumbar Vertebral Joint, Open Approach (ICD-10-PCS; principal; 2017-11-06 07:00)
DX: T84.84XA Pain due to internal orthopedic prosthetic devices, implants and grafts, initial encounter (principal); E11.9 Type 2 diabetes mellitus without complications; Z98.1 Arthrodesis status; Y83.8 Other surgical procedures as the cause of abnormal reaction of the patient, or of later complication, without mention of misadventure at the time of the procedure; E78.5 Hyperlipidemia, unspecified; E66.9 Obesity, unspecified; Z79.84 Long term (current) use of oral hypoglycemic drugs; G89.18 Other acute postprocedural pain
CPT/HCPCS: 36415; 72020; 76001; 82962; 86850; 86900; 86901; 87081; 94003; 94150; 94760; J2250; J2405; J2710